=== PATIENT | female | born 1970 | race African-American/Black ===

== ENCOUNTER → 2018-08-27 | Outpatient (CLI) | payer OTHER ==
[2006-05-25 07:58] VITALS: PULSE 60; TEMP 98.2
== END ==
LOC: MC.RAD 13:13
DX: M79.622 Pain in left upper arm (principal); N64.4 Mastodynia
CPT/HCPCS: G0279

== ENCOUNTER → 2020-09-21 | Outpatient (CLI) | payer OTHER ==
[2006-05-25 07:58] VITALS: PULSE 60; TEMP 98.2
== END ==
LOC: MC.RAD 16:25
DX: Z12.31 Encounter for screening mammogram for malignant neoplasm of breast (principal)

== ENCOUNTER → 2021-12-20 | Outpatient (CLI) | payer OTHER ==
[2006-05-25 07:58] VITALS: PULSE 60; TEMP 98.2
== END ==
LOC: MC.RAD 13:42
DX: Z12.31 Encounter for screening mammogram for malignant neoplasm of breast (principal)